=== PATIENT | male | born 1990 | race Caucasian/White ===

== ENCOUNTER 2023-07-22 11:48 | Emergency (ER) | payer OTHER, SELFPAY ==
[2023-07-22 11:53] VITALS: BP 100/74
--- NOTE | 2023-07-22 12:18 | ED.GENMED ---
History of Present Illness
General
Chief Complaint: Anal/Rectal Problem
Source: patient and spouse
Exam Limitations: none
Time Seen by Provider: 07/22/23 12:07
Nursing documentation reviewed up to this point in time: agreed with
Travel History
Have you had any contact with someone who has COVID-19?: No
Do you have any symptoms of coronavirus? Fever > 100 degrees, chills, cough, shortness of breath, sore throat, loss of taste or smell, muscle aches, or headache?: No
History of Present Illness
History of Present Illness:
32-year-old male presents the emergency department complaining of rectal pain for several months. He has used a suppository, it is not helping. He states he is having hard bowel movements and these. 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
Past History
Past History
ED Past Medical History: None
ED Past Surgical History: None
Social History
Tobacco: Smoker
Alcohol: None
Drug: None
Personal:
Living: with family
Employment: Employed
Review of Systems
Review of Systems
Allergies reviewed?: Yes
All Other Systems: Not applicable
Constitutional: Reports no symptoms
EENT: Reports no symptoms
Respiratory: Reports no symptoms
Cardiac: Reports no symptoms
ABD/GI: Reports pain (Rectal pain)
: Reports no symptoms
Musculoskeletal: Reports no symptoms
Skin: Reports no symptoms
Neurological: Reports no symptoms
Endocrine: Reports no symptoms
Hematologic/Lymphatic: Reports no symptoms
Phy Exam
Physical Exam
Physical Exam:
Physical Exam
General: no apparent distress, not acutely ill
Neck: supple. no meningeal signs. normal posterior pharynx
Heart: s1/s2 regular rate and rhythm, no murmur. equal radial
pulses.
HEENT: Pupils equal round reactive to light, EOMI
Lungs: no acute respiratory distress. clear bilaterally
Abdomen: normal bowel sounds. not tender. no CVAT, rectal exam: Anal fissure midline and left sided, 12:00 and 9:00
Neuro: alert and oriented. no focal neurological deficits
Skin: no rash
Psychiatric: well kept. interactive and cooperative
Extremities: no edema. good distal pulses
Course
Vital Signs
Initial and Last Documented VS:
Initial Vital Signs
Temp Pulse Resp BP Pulse Ox
98.8 F 72 16 100/74 98
07/22/23 11:53 07/22/23 11:53 07/22/23 11:53 07/22/23 11:53 07/22/23 11:53
Last Documented Vital Signs
Temp Pulse Resp BP Pulse Ox
98.8 F 72 16 100/74 98
07/22/23 11:53 07/22/23 11:53 07/22/23 11:53 07/22/23 11:53 07/22/23 11:53
MDM/Problems Addressed
Differential Diagnosis Includes:
Hemorrhoid, anal fissure
MDM/Problems Addressed:
32-year-old male with anal fissure. Do not note abscess.
*Pulse Oximetry
Patient hypoxic: no
*EKG
Interpreted by ED Provider?: NA
*Train Crew Member Interpretation
Rate: Train Crew Member- N/A
*Critical Care Note
Total Time (30-74mins, 75-104mins- exclusive of procedures): Not Applicable
Patient Management
Social determinants of health affecting care: Living situation
Escalation/DeEscalation of care consider admission/obs:
Admit not indicated
ED Attending Note
-
Portions of this chart may have been created with voice recognition software.� Occasional wrong word or��sound alike� substitutions may have occurred due to the inherent limitations of voice recognition software.
Discharge Plan
Departure
Patient Disposition: Home (Routine Discharge)
Date of Disposition: 07/22/23
Time of Disposition: 12:23
Patient with high blood pressure during this ER visit?: No
Condition: Good
Discharge Problem:
Acute anterior anal fissure
Instructions: How to Do a Sitz Bath, Anal Fissure, Adult ED
Prescriptions:
New
nitroglycerin [Rectiv] 0.4 % (w/w) ointment
1 inch VT BID Qty: 30 0RF
Rx Instructions:
apply to anus twice a day
No Action
ibuprofen [Motrin] 400 mg Tablet
400 mg PO Q6H PRN (Reason: pain)
Anusol Suppository
1 supp [place] PRN PRN (Reason: rectal pain)
Referrals:
Rafiq Lee MD [Active] - Call in 1-3 days for appt
Interventions
Interventions:
*Risk Screen - Suicide Last Done: 07/22/23 12:20
*General Assessment Last Done: 07/22/23 12:13
*Neglect/Abuse Screening Last Done: 07/22/23 12:20
ED- Fall Risk Assessment Last Done: 07/22/23 12:20
*ED COVID-19 Vaccine History Last Done: 07/22/23 12:20
FW-Inkvjq-Fbvwdxwttw Assessment Last Done: 07/22/23 12:21
ED-Skin Assessment Last Done: 07/22/23 12:20
Discharge Date and Time
Print Language: FAROESE
== END 2023-07-22 12:55 | disposition home or self-care (01) ==
LOC: EMR 11:48
PROVIDERS: EMERGENCY PHYSICIAN Emergency Medicine; FAMILY PHYSICIAN Internal Medicine
DX: K60.2 Anal fissure, unspecified (principal); F17.200 Nicotine dependence, unspecified, uncomplicated
CPT/HCPCS: 99282

== ENCOUNTER 2024-09-28 05:17 | Emergency (ER) | payer OTHER, SELFPAY ==
[2024-09-28 05:24] VITALS: BP 108/78
[2024-09-28 05:39] VITALS: BP 129/79
[2024-09-28 05:41] VITALS: BMI 27.1
--- NOTE | 2024-09-28 05:53 | ED.GENMED ---
History of Present Illness
<Cynthia Zepeda MD, Resident - Last Filed: 09/28/24 06:19>
General
Chief Complaint: Anal/Rectal Problem
Source: patient
Time Seen by Provider: 09/28/24 05:39
History of Present Illness
History of Present Illness:
34-year-old male comes to the ED due to recent history of pain in his anus. He had been having some discomfort past couple days however earlier today at 6 to 7 PM he developed increased pain. He has not had any bleeding but he has noticed a bump
in upper part of his anal sphincter. He had normal bowel movements and has no constipation history but has had this increased anal pain. He has had hemorrhoids in the past as well as anal fissures and this pain is similar to how it has been in the
past. He does not report any fever or chills, and as stated before has not noticed any blood in his underwear or in his stool. He rates the pain as 7 out of 10 and is limited to the one spot on his anus.
Past History
<Cynthia Zepeda MD, Resident - Last Filed: 09/28/24 06:19>
Past History
ED Past Medical History: Other (Anal fissures and Hemorrhoids)
ED Past Surgical History: None
Social History
Tobacco: Smoker
Alcohol: None
Drug: None
Personal:
Living: with family
Employment: Employed
Review of Systems
<Cynthia Zepeda MD, Resident - Last Filed: 09/28/24 06:19>
Review of Systems
Allergies reviewed?: Yes
Constitutional: Reports no symptoms
EENT: Reports no symptoms
Respiratory: Reports no symptoms
Cardiac: Reports no symptoms
ABD/GI: Reports other (Anal pain); Denies constipated or bloody stools
: Reports no symptoms
Musculoskeletal: Reports no symptoms
Skin: Reports no symptoms
Neurological: Reports no symptoms
Endocrine: Reports no symptoms
Hematologic/Lymphatic: Reports no symptoms
Psychiatric: Reports no symptoms
Phy Exam
<Cynthia Zepeda MD, Resident - Last Filed: 09/28/24 06:19>
General Physical Exam
General Presentation: mild distress
General Skin: warm and dry
General Habitus: normal
General Mental: alert
General Hydration: appears well hydrated
Cardiovascular Exam
Cardiovascular Exam: regular rate/rhythm, no edema and no murmur
Pulmonary Exam
Pulmonary Exam: lungs clear, no respiratory distress, no rales, no crackles and no wheezing
Gastrointestinal Exam
Gastrointestinal Exam: non tender, soft and non distended
Rectal Exam: hemorrhoids (single non bleeding, non erythematous but tender hemorrhoid seen on the external anal sphincter)
Course
<Cynthia Zepeda MD, Resident - Last Filed: 09/28/24 06:19>
Vital Signs
Initial and Last Documented VS:
Initial Vital Signs
Temp Pulse Resp BP Pulse Ox
97.7 F 80 18 108/78 99
09/28/24 05:24 09/28/24 05:24 09/28/24 05:24 09/28/24 05:24 09/28/24 05:24
Last Documented Vital Signs
Temp Pulse Resp BP Pulse Ox
97.7 F 80 18 129/79 97
09/28/24 05:24 09/28/24 05:24 09/28/24 05:24 09/28/24 05:39 09/28/24 05:45
<Nayla Arboleda DO - Last Filed: 09/28/24 06:05>
Vital Signs
Initial and Last Documented VS:
Initial Vital Signs
Temp Pulse Resp BP Pulse Ox
97.7 F 80 18 108/78 99
09/28/24 05:24 09/28/24 05:24 09/28/24 05:24 09/28/24 05:24 09/28/24 05:24
Last Documented Vital Signs
Temp Pulse Resp BP Pulse Ox
97.7 F 80 18 129/79 97
09/28/24 05:24 09/28/24 05:24 09/28/24 05:24 09/28/24 05:39 09/28/24 05:45
<Cynthia Zepeda MD, Resident - Last Filed: 09/28/24 06:19>
MDM/Problems Addressed
Differential Diagnosis Includes:
External Hemorrhoid, Anal Fissure, Cyst
MDM/Problems Addressed:
Upon examination of the patient's anus, an external hemorrhoid was seen. The hemorrhoid was tender and flesh colored, giving less suspicion for any thrombosis in the hemorrhoid. No signs of active bleeding from the hemorrhoid. Discussed with patient
that he should manage it with Sitz baths, and Anusol/Prep H cream at home, along with stool softener
Patient given information about general surgery to follow if symptoms do not resolve and hemorrhoid stays
<Cynthia Zepeda MD, Resident - Last Filed: 09/28/24 06:19>
*Pulse Oximetry
SaO2: 97
Oxygen Mode of Delivery: Room air
Patient hypoxic: no
*Critical Care Note
Total Time (30-74mins, 75-104mins- exclusive of procedures): Not Applicable
ED Attending Note
<Cynthia Zepeda MD, Resident - Last Filed: 09/28/24 06:19>
-
Portions of this chart may have been created with voice recognition software.� Occasional wrong word or��sound alike� substitutions may have occurred due to the inherent limitations of voice recognition software.
<Nayla Arboleda DO - Last Filed: 09/28/24 06:05>
ED Attending Note
Patient seen and examined by attending physician: Yes
I performed the substantive portion of visit, reviewed & personally made and approve the management plan that is documented in note by myself or CARLOZ.: Yes
I performed a history and physical exam of patient and discussed management with resident, I reviewed resident's note and agree with documented findings and plan of care.: Yes
ED Attending Note:
34-year-old male without significant past medical history presenting to the emergency department for rectal discomfort. Notes that the pain started yesterday. Denies any blood in his stool. Denies any significant constipation. Does report that
he had similar symptoms in the past, had a hemorrhoid. Denies abdominal pain. Denies fever. Denies additional acute medical complaints
Vital signs are normal. On examination of the rectum, there is a moderate-sized hemorrhoid at the 5 o'clock position. Hemorrhoid is nonthrombosed. No surrounding erythema. No drainage. No other concerning features on exam. Suspected source of
patient's discomfort, tender to palpation. Ultimately feel stable for discharge with outpatient supportive therapy. Patient offered let gel here, declined. Educated on importance of stool softeners, as well as topical treatment. Will prescribe
docusate and Preparation H. Patient notes this has happened in the past, is interested in surgical excision. Will provide information for surgery. Return precautions discussed.
Discharge Plan
Departure
Patient Disposition: Home (Routine Discharge)
Date of Disposition: 09/28/24
Time of Disposition: 06:07
Patient with high blood pressure during this ER visit?: No
Condition: Good
Discharge Problem:
External hemorrhoid
Instructions: Hemorrhoids (DC), How to Do a Sitz Bath
Prescriptions:
New
hydrocortisone acetate [Anusol-HC] 25 mg suppository
25 mg TN DAILY Qty: 12 0RF
docusate sodium [Colace] 100 mg capsule
100 mg PO DAILY Qty: 30 0RF
Preparation H 0.25-14-74.9 % ointment
1 applic TN AMHS PRN (Reason: hemorrhoids) Qty: 28 0RF
No Action
ibuprofen [Motrin] 400 mg Tablet
400 mg PO Q6H PRN (Reason: pain)
Anusol Suppository
1 supp TN PRN PRN (Reason: rectal pain)
nitroglycerin [Rectiv] 0.4 % (w/w) ointment
1 inch TN BID Qty: 30 0RF
Rx Instructions:
apply to anus twice a day
docusate sodium [Colace] 100 mg capsule
100 mg PO DAILY Qty: 30 0RF
Referrals:
Earl Esparza MD [Active, Surgical]
Referral Note: Follow up with Dr. Esparza for management of Hemorrhoids if it does not resolve by itself
Activity Restrictions/Additional Instructions:
Use Sitz Baths as directed
As discussed, use Anusol, Preparation H ointment and stool softener to help with your hemorrhoid
As discussed, you should make an appointment with general surgery for removal of hemorrhoid if it does not resolve
Interventions
Interventions:
*Risk Screen - Suicide Last Done: 09/28/24 05:20
*General Assessment Last Done: 09/28/24 05:20
*Neglect/Abuse Screening Last Done: 09/28/24 05:20
*ED- Fall Risk Assessment Last Done: 09/28/24 05:20
*ED COVID-19 Vaccine History Last Done: 09/28/24 05:20
KC-Eyeecf-Hezexnxtbi Assessment Last Done: 09/28/24 05:41
ED-Skin Assessment Last Done: 09/28/24 05:41
Discharge Date and Time
Print Language: GHANAIAN
[2024-09-28 06:00] VITALS: BP 121/74
== END 2024-09-28 06:40 | disposition home or self-care (01) ==
LOC: EMR 05:17
PROVIDERS: EMERGENCY PHYSICIAN Student in an Organized Health Care Education/Training Program
DX: K64.4 Residual hemorrhoidal skin tags (principal); F17.200 Nicotine dependence, unspecified, uncomplicated
CPT/HCPCS: 99283

== ENCOUNTER 2024-10-07 19:29 | Emergency (ER) | payer OTHER, SELFPAY ==
[2024-10-07 19:42] VITALS: BP 115/77
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
[2024-10-08 02:02] VITALS: BP 113/60
[2024-10-08 02:03] VITALS: BMI 27.7
== END 2024-10-08 02:22 | disposition home or self-care (01) ==
LOC: EMR 19:29
PROVIDERS: EMERGENCY PHYSICIAN Emergency Medicine
DX: S06.0XAA Concussion with loss of consciousness status unknown, initial encounter (principal); F17.200 Nicotine dependence, unspecified, uncomplicated; V29.408A Other motorcycle driver injured in collision with unspecified motor vehicles in traffic accident, initial encounter; Y92.410 Unspecified street and highway as the place of occurrence of the external cause
CPT/HCPCS: 99284; 70450

== ENCOUNTER 2024-10-17 22:50 | Emergency (ER) | payer OTHER, SELFPAY ==
[2024-10-17 22:52] VITALS: BP 115/85
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
== END 2024-10-18 03:15 | disposition home or self-care (01) ==
LOC: EMR 22:50
PROVIDERS: EMERGENCY PHYSICIAN Student in an Organized Health Care Education/Training Program
DX: S00.03XA Contusion of scalp, initial encounter (principal); V49.9XXA Car occupant (driver) (passenger) injured in unspecified traffic accident, initial encounter; Y92.410 Unspecified street and highway as the place of occurrence of the external cause; F17.200 Nicotine dependence, unspecified, uncomplicated; Z87.19 Personal history of other diseases of the digestive system
CPT/HCPCS: 99284; 70450